=== PATIENT | male | born 1970 | race Caucasian/White ===

== ENCOUNTER 2022-02-27 12:42 | Outpatient (CLI) | payer BC, OTHER | END 2022-02-27 12:43 | disposition home or self-care (01) | LOC: ULT 12:42 | PROVIDERS: ATTEND Urology | DX: N50.819 Testicular pain, unspecified (principal); N50.3 Cyst of epididymis; N43.3 Hydrocele, unspecified | CPT/HCPCS: 76870; 93976 ==

== ENCOUNTER → 2023-10-05 | Day surgery (SDC) | payer OTHER ==
[~2023-10-05] MED LIST: Dexamethasone 20 MG/5 ML VIAL ONE; Iopamidol 30 ML ONE; Ketorolac Tromethamine 30 MG (1 mL) VIAL ONE; LevoFLOXacin 500 mg/D5W 500 MG in Premix 1 BAG IVPB SCH; LevoFLOXacin D5W 500 mg (100 mL) BAG ONE; Lidocaine 2% PF 5 ML VIAL ONE; Midazolam HCl 2 mg/2 ml Vial ONE; Ondansetron PF 4 MG/2 ML Vial ONE; Oxybutynin 5 MG TAB ONE; PROPOFOL 20 ML ONE; Phenazopyridine HCl 100 MG TAB ONE; Rocuronium Bromide 10 MG/ML (10ML VIAL) ONE; SUGAMMADEX SODIUM 200 MG/2 ML VIAL ONE; fentaNYL PF 100 MCG/2 ML SYRINGE ONE
[2023-10-05 12:05] LABS: #Basophils Less than 0.03 10x3/uL (0.0-0.2); %Basophils 0.2 % (0.0-1.0); %Eosinophils 0.9 % (0.0-10.0); %Lymphocytes 16.5 % (21.0-51.0); %Monocytes 9.8 % (0.0-10.0); %Neutrophils 72.1 % (42.0-75.0); Hematocrit 40.3 % (42.0-52.0); Hemoglobin 13.6 g/dL (14.0-18.0); Mean Corpuscular HGB CONC 33.7 g/dL (32.0-36.0); Mean Corpuscular Hemoglobin 31.3 pg (27.0-31.0); Mean Corpuscular Volume 92.6 fL (78.0-98.0); Mean Platelet Volume 10.8 fL (7.4-10.4); Platelet Count 143 10x3/uL (130-400); Red Blood Cell (RBC) Count 4.35 mill/uL (4.70-6.10)
[2023-10-05 12:17] LABS: Bacteria/HPF None Seen HPF (None Seen); Bilirubin Negative (Negative); Blood, Urine Negative (Negative); CAUTI Indications for Culture Pelvic or flank pain; Clarity Clear (Clear); Glucose, Urine (Dipstick) Normal (Negative); Ketone, Urine Negative (Negative); Leukocyte Negative Leu/uL (Negative); Nitrite Negative (Negative); Protein, Urine (Dipstick) Negative (Neg-Trace); RBC/HPF 0-3 HPF (0-3); Specific Gravity, Urine 1.017 (1.002-1.036); Squamous Epithelial None Seen HPF (0-3); Urobilinogen Normal mg/dL (Less than 2); WBC/HPF None Seen HPF (0-3); pH, Urine 6.5 (5.0-9.0)
[2023-10-05 12:21] LABS: ALT (SGPT) 73 U/L (8-55); AST (SGOT) 51 U/L (5-34); Albumin 3.8 g/dL (3.5-5.0); Alkaline Phosphatase 51 U/L (40-110); Anion Gap 10 mmol/L (10-20); BUN (Urea Nitrogen) 23 mg/dL (8.4-25.7); Bilirubin, Total 0.9 mg/dL (0.2-1.2); Calc. Creatinine Clearance 0 mL/min (70-130); Calcium 9.1 mg/dL (7.8-10.44); Carbon Dioxide 27 mmol/L (22-29); Chloride 106 mmol/L (98-107); Estimated GFR 39; Globulin 2.9 g/dL (2.4-3.5); Glucose 93 mg/dL (70-105); Potassium 4.5 mmol/L (3.5-5.1); Protein, Total 6.7 g/dL (6.0-8.3); Sodium 138 mmol/L (136-145)
[2023-10-05 12:22] LABS: Urine Culture Reflex No No
[2023-10-05 14:23] LABS: Lavender RECEIVED; Red RECEIVED
[2023-10-05 14:37] LABS: Follow-up Chemistry Comp? YES; Follow-up Hematology Comp? YES; Follow-up Result - Chemistry REPORT FAXED; Follow-up Result - Hematology REPORT FAXED
[2023-10-11 17:12] LABS: CA Oxalate Monohydrate 100 % (.); Color Brown (.); Stone Weight 8 mg (.)
== END | disposition admitted as inpatient to this hospital (09) ==
LOC: ERS 11:23 → SDC 12:11
PROVIDERS: ATTEND Urology
PROC: 0TC68ZZ Extirpation of Matter from Right Ureter, Via Natural or Artificial Opening Endoscopic (ICD-10-PCS; principal; 2023-10-05)
PROC: 0T768DZ Dilation of Right Ureter with Intraluminal Device, Via Natural or Artificial Opening Endoscopic (ICD-10-PCS; principal; 2023-10-05)
PROC: BT1D1ZZ Fluoroscopy of Right Kidney, Ureter and Bladder using Low Osmolar Contrast (ICD-10-PCS; principal; 2023-10-05)
DX: N20.9 Urinary calculus, unspecified (principal)
CPT/HCPCS: 36415; 74420; 80053; 81001; 82365; 84550; 85025; 88300; 96374; C1747; C1769; C2617; J1100; J1885; J1956; J2001; J2250; J2405; J2704; Q9967